=== PATIENT | female | born 1985 | race Caucasian/White ===

== ENCOUNTER 2018-01-20 17:48 | Inpatient (IN) | END 2018-01-22 19:50 | disposition home or self-care (01) | DRG 832 ==

== ENCOUNTER 2018-06-29 15:18 | Outpatient (CLI) | payer BC ==
[~2018-06-29] VITALS: Ht 157.5 cm; Wt 105.4 kg
[~2018-06-29 15:18] MED LIST: FER325 PO; FOLI-49 PO; PNV11TAB PO
[2018-06-29 15:38] VITALS: Ht 157.5 cm; Wt 105.4 kg
[2018-06-29 15:40] VITALS: BP 125/72; PULSE 94; RESP 19
--- NOTE | 2018-06-29 17:16 | TRIAGE ---
OB Triage Datetime Report Generated by CPN: 06/29/2018 17:15 Datetime: 06/29/2018 16:53 Labor Evaluation Frequency: 0 Quality: Mild Pattern: Normal: <= 5 Contractions in 10 Minutes Resting Tone [place]: Relaxed Heart Rate FHR Baseline Rate: 145 Monitor Mode: External US FHR Baseline Changes: No Baseline Change Variability: Moderate 6-25 bpm Accelerations: 15X15 Decelerations: None Category: Category I Datetime: 06/29/2018 16:15 Labor Evaluation Frequency: OCCAS Monitor Mode: External Duration (sec)2399: 50-110 Quality: Mild Pattern: Normal: <= 5 Contractions in 10 Minutes Resting Tone [place]: Relaxed Heart Rate FHR Baseline Rate: 150 Monitor Mode: External US Variability: Moderate 6-25 bpm Accelerations: 15X15 Decelerations: None Category: Category I Datetime: 06/29/2018 15:45 Assessment Type: Triage Maternal Assessment Level of Consciousness: Fully Conscious DTR's/Clonus: DTRs 2+; No Clonus Headache: Denies Blurred Vision: No Respiratory Effort: Unlabored; Regular Rhythm; Equal Expansion Breath Sounds, Left: Clear and Equal Breath Sounds, Right: Clear and Equal Nausea/Vomiting: Denies RUQ Epigastric Pain: Denies Lower Extremities Edema: None Degree: None Upper Extremities Edema: None Degree: None Facial Edema: None Fall Risk Assessment History of Falling: (0) No Secondary Diagnosis: (0) No Ambulatory Aid: (0) Bedrest/Nurse Assist IV Therapy: (0) No Gait: (0) Normal/Bedrest/Immobile Mental Status: (0) Oriented to Own Ability Fall Score: 0 Fall Risk Score Definition: No Risk: No action required Labor Evaluation Frequency: OCCAS Monitor Mode: External Duration (sec)2399: 50-70 Quality: Mild Pattern: Normal: <= 5 Contractions in 10 Minutes Resting Tone [place]: Relaxed Heart Rate FHR Baseline Rate: 155 Monitor Mode: External US FHR Baseline Changes: No Baseline Change Variability: Moderate 6-25 bpm Accelerations: 15X15 Decelerations: None Category: Category I Datetime: 06/29/2018 15:43 Time of Arrival: 06/29/2018 15:04 EGA: 37.2 Arrived By: Ambulatory Arrived From: Other Hospital Chief Complaint: TACHYCARDIA Movement: Present Contractions: Denies/Absent Rupture of Membranes: Denies Vaginal Bleeding: None Vaginal Discharge: Denies Recent Sexual Intercouse: Denies Abdominal Trauma: Not Applicable Patient Complaints: Other Initial Plan: [facility] Datetime: 01/22/2018 19:08 Stage of : Antepartum Datetime: 01/22/2018 16:01 Stage of : Antepartum Temperature Route: Oral Pain Assessment Pain Scale: 0 Pain Presence: None/Denies Pain Type: N/A Datetime: 01/22/2018 11:43 Stage of : Antepartum Temperature Route: Oral Pain Assessment Pain Scale: 0 Pain Presence: None/Denies Pain Type: N/A Datetime: 01/22/2018 08:15 Assessment Type: Ongoing Assessment Maternal Assessment Level of Consciousness: Fully Conscious DTR's/Clonus: DTRs 2+; No Clonus Headache: Denies Blurred Vision: No Respiratory Effort: Unlabored; Regular Rhythm; Equal Expansion Breath Sounds, Left: Clear and Equal Breath Sounds, Right: Clear and Equal Nausea/Vomiting: Denies RUQ Epigastric Pain: Denies Lower Extremities Edema: None Degree: None Upper Extremities Edema: None Degree: None Facial Edema: None Fall Risk Assessment History of Falling: (0) No Secondary Diagnosis: (0) No Ambulatory Aid: (0) Bedrest/Nurse Assist IV Therapy: (0) No Gait: (0) Normal/Bedrest/Immobile Mental Status: (0) Oriented to Own Ability Fall Score: 0 Fall Risk Score Definition: No Risk: No action required Datetime: 01/22/2018 08:00 Stage of : Antepartum Heart Rate FHR Baseline Rate: 155 Monitor Mode: Doppler Pain Assessment Pain Scale: 0 Pain Presence: None/Denies Pain Type: N/A Datetime: 01/22/2018 07:47 Temperature Route: Oral Datetime: 01/22/2018 04:20 Temperature Route: Oral Pain Assessment Pain Scale: 0 Datetime: 01/22/2018 00:10 Temperature Route: Oral Pain Assessment Pain Scale: 0 Datetime: 01/21/2018 20:54 Bedside Blood Glucose: 120 Datetime: 01/21/2018 20:16 Assessment Type: Ongoing Assessment Maternal Assessment Level of Consciousness: Fully Conscious Headache: Denies Blurred Vision: No Respiratory Effort: Unlabored; Regular Rhythm; Equal Expansion Nausea/Vomiting: Denies RUQ Epigastric Pain: Denies Lower Extremities Edema: None Upper Extremities Edema: None Facial Edema: None Fall Risk Assessment History of Falling: (0) No Secondary Diagnosis: (0) No Ambulatory Aid: (0) Bedrest/Nurse Assist IV Therapy: (0) No Gait: (0) Normal/Bedrest/Immobile Mental Status: (0) Oriented to Own Ability Fall Score: 0 Fall Risk Score Definition: No Risk: No action required Datetime: 01/21/2018 20:15 Temperature Route: Oral Pain Assessment Pain Scale: 0 Datetime: 01/21/2018 16:27 Stage of : Antepartum Datetime: 01/21/2018 16:13 Stage of : Antepartum Datetime: 01/21/2018 16:00 Stage of : Antepartum Temperature Route: Oral Pain Assessment Pain Scale: 5 Pain Presence: Constant Pain Type: Ache Pain Location: Head (Annotations: temporal areas) Datetime: 01/21/2018 14:47 Bedside Blood Glucose: 125 (Annotations: 2 pp) Datetime: 01/21/2018 12:42 Stage of : Antepartum Datetime: 01/21/2018 12:04 Stage of : Antepartum Temperature Route: Oral Bedside Blood Glucose: 106 (Annotations: AC lunch) Pain Assessment Pain Scale: 0 Pain Presence: None/Denies Pain Type: N/A Datetime: 01/21/2018 11:20 Stage of : Antepartum Datetime: 01/21/2018 08:30 Stage of : Antepartum Assessment Type: Admission Assessment Maternal Assessment Level of Consciousness: Fully Conscious DTR's/Clonus: DTRs 2+; No Clonus Headache: Denies Blurred Vision: No Respiratory Effort: Unlabored; Regular Rhythm; Equal Expansion Breath Sounds, Left: Clear and Equal Breath Sounds, Right: Clear and Equal Nausea/Vomiting: Denies RUQ Epigastric Pain: Denies Lower Extremities Edema: None Degree: None Upper Extremities Edema: None Degree: None Facial Edema: None Fall Risk Assessment History of Falling: (0) No Secondary Diagnosis: (0) No Ambulatory Aid: (0) Bedrest/Nurse Assist IV Therapy: (0) No Gait: (0) Normal/Bedrest/Immobile Mental Status: (0) Oriented to Own Ability Fall Score: 0 Fall Risk Score Definition: No Risk: No action required Pain Assessment Pain Scale: 0 Pain Presence: None/Denies Pain Type: N/A Datetime: 01/21/2018 08:24 Heart Rate FHR Baseline Rate: 155 Monitor Mode: Doppler Datetime: 01/21/2018 08:11 Bedside Blood Glucose: 108 (Annotations: FBS) Datetime: 01/21/2018 08:07 Stage of : Antepartum Temperature Route: Oral Datetime: 01/21/2018 06:20 Stage of : Antepartum Datetime: 01/21/2018 05:50 Stage of : Antepartum Pain Presence: None/Denies Pain Type: N/A Pain Assessment Comments: PT REMAINS ASLEEP WITH EVEN UNLABORED BREATHING. Datetime: 01/21/2018 03:50 Stage of : Antepartum Temperature Route: Oral Contraction Comments: PT DENIES CRAMPING Pain Presence: None/Denies Pain Type: N/A Datetime: 01/20/2018 23:51 Stage of : Antepartum Temperature Route: Oral Contraction Comments: PT DENIES CRAMPING Comments: PT STATES + FM Pain Presence: None/Denies Pain Type: N/A Pain Assessment Comments: PT DENEIS ANY NEEDS AT THIS TIME. Datetime: 01/20/2018 22:35 Stage of : Antepartum Bedside Blood Glucose: 126 (Annotations: 2 HR PP LATE DINNER) Pain Presence: None/Denies Pain Type: N/A Pain Assessment Comments: PT SLEEPING BUT EASILY AROUSED Datetime: 01/20/2018 20:37 Stage of : Antepartum Datetime: 01/20/2018 20:34 Time of Arrival: 01/20/2018 18:00 EGA: 14.3 Arrived By: Ambulatory Arrived From: Home Datetime: 01/20/2018 20:30 Assessment Type: Admission Assessment Vaginal Bleeding: None Maternal Assessment Level of Consciousness: Fully Conscious DTR's/Clonus: DTRs 2+; No Clonus Headache: Denies Blurred Vision: No Respiratory Effort: Unlabored; Regular Rhythm; Equal Expansion Breath Sounds, Left: Clear and Equal Breath Sounds, Right: Clear and Equal Nausea/Vomiting: Denies RUQ Epigastric Pain: Denies Lower Extremities Edema: None Degree: None Upper Extremities Edema: None Degree: None Facial Edema: None Fall Risk Assessment History of Falling: (0) No Secondary Diagnosis: (0) No Ambulatory Aid: (0) Bedrest/Nurse Assist IV Therapy: (0) No Gait: (0) Normal/Bedrest/Immobile Mental Status: (0) Oriented to Own Ability Fall Score: 0 Fall Risk Score Definition: No Risk: No action required Contraction Comments: PT DENIES CRAMPING Pain Assessment Pain Scale: 0 Pain Presence: None/Denies Pain Type: N/A Vaginal Exam Membrane Status: Intact Datetime: 01/20/2018 20:25 Stage of : Antepartum Datetime: 01/20/2018 19:15 Stage of : Antepartum
--- NOTE | 2018-06-29 22:53 | PN ---
Triage Information Date/Time Reason for visit: Antepartum testing for gestational diabetes Weeks of Gestation 37 weeks and 2 days /Para Diabetes: gestational Diabetes management: diet controlled Hypertention: none Objective Vital Signs Date Temp Pulse Resp B/P (MAP) Pulse Ox O2 O2 Flow FiO2 Time Delivery Rate 06/29/18 98.8 94 19 125/72 Room Air 15:40 (89) Heart Rate: 130's Contractions: None Disposition: Discharge Assessment/Plan 32 years old -0-0-2 at 37 weeks and 2 days with a HARLEY of 07/18/2018 with gestational diabetes seen at the [facility], referred to triage for prolonged monitoring. She states good movement. She denies nausea, vomiting, shortness of breath, chest pain, headache, visual changes, vaginal bleeding or LOF. -FHR: No sign of metabolic acidosis- Category I -Contractions: None -Recommend follow-up in 2 days in triage for antepartum testing -Symptoms and sign of labor, preeclampsia, kick count discussed with patient, she voiced understanding. All of her questions answered. -Patient was discharged home in stable condition with the appropriate discharge instructions provided. I would like patient to have close follow-up with her primary physician or outpatient clinic in 1-2 days or return to triage for worsening symptoms or any other urgent concerns. FLORENCE BYERS June 29, 2018 22:53
== END 2018-06-29 17:25 | disposition home or self-care (01) ==
LOC: OBT 15:18 → L-D 15:20 → OBT 17:25
PROVIDERS: ATTEND Obstetrics & Gynecology
DX: O24.419 Gestational diabetes mellitus in pregnancy, unspecified control (principal); Z3A.37 37 weeks gestation of pregnancy
CPT/HCPCS: G0463